=== PATIENT | female | born 1980 | race American Indian/Alaskan Native ===

== ENCOUNTER 2018-09-19 03:00 | Inpatient (IN) | payer MEDICAID ==
--- NOTE | 2018-09-19 04:57 | History and Physical Report ---
History of Present Illness Date of examination: 09/19/18 Date of admission: 09/19/18 03:00 Chief complaint: IOL for GDM History of present illness: Menstrual History Regularity: regular Menses every: 30 days Duration: 7-8 LMP: 12/18/2017 LMP reliability: definite LMP character: normal test type: urine test BC at conception: none Planned ? no EDC Calculations LMP: 09/24/2018 EDC Confirmation: 09/24/2018 Gestational Age: 21 2/7 weeks Past History : 5 Term Births: 3 Premature Births: 0 Living Children: 3 Para: 3 Mult. Births: 0 Prev : 0 Aborta: 1 Elect. Ab: 0 Spont. Ab: 1 Ectopics: 0 # 1 Delivery date: 2004 Weeks Gestation: 12 Delivery type: SAB Comments: D&C # 2 Delivery date: 07/10/2006 Weeks Gestation: 39 Delivery type: Hours of labor: 14 Anesthesia type: epidural Delivery location: [place] weight: 7-8 Name: Fermin # 3 Delivery date: 02/17/2008 Weeks Gestation: 40 Delivery type: Hours of labor: 6 Anesthesia type: epidural Delivery location: [place] Infant Sex: Male weight: 7-3 Name: Mick Comments: Elective # 4 Delivery date: 07/23/2011 Weeks Gestation: 39 Delivery type: Hours of labor: 6 Anesthesia type: none Delivery location: [place] Sex: Female weight: 8-0 Name: Machelle Past Medical History: Fibroids Past Surgical History: Breast Reduction: (2004) Neck surgery oas infant Social History: Marital Status: Children: 3 Occupation: [employer] engineer Past History Past Medical History: other (see hpi) Past Surgical History: other (see hpi) CREDIT PROFESSIONAL History: other (see hpi) Family/Genetic History: other (see hpi) Social history: other (see hpi) Medications and Allergies Allergies Allergy/AdvReac Type Severity Reaction Status Date / Time No Known Allergies Allergy Verified 09/19/18 05:26 - Vital Signs Vital signs: Vital Signs Pulse BP 106 H 134/75 09/19/18 03:50 09/19/18 03:50 Temp Pulse Resp BP Pulse Ox 106 H 134/75 09/19/18 03:50 09/19/18 03:50 Results All other labs normal. Assessment and Plan 38 y.o. IUP at 39w2d presents for IOL for GDM. Per admitting RNSHANNA / 2. GBS negative. Patient denies contractions at current. Pitocin ordered per induction protocol. Patient is non compliant with ordered insulin regimen at home. Will obtain glucose monitoring and assess need for treatment throughout labor. - Patient Problems (1) 39 weeks gestation of Current Visit: Yes Status: Acute (2) GDM (gestational diabetes mellitus) Current Visit: Yes Status: Acute (3) AMA (advanced maternal age) multigravida 35+ Current Visit: Yes Status: Acute (4) Obese Current Visit: Yes Status: Acute
[2018-09-19] MEDS ORDERED: MINERAL OIL PO PRN (05:15)
[2018-09-19] MEDS ORDERED: BRETHINE SUB-Q PRN (05:15)
[2018-09-19] MEDS ORDERED: XYLOCAINE 2% INFILTRATI ONE (05:15)
[2018-09-19] MEDS ORDERED: BRETHINE IVP PRN (05:15)
[2018-09-19] MEDS ORDERED: ZOFRAN IV PRN (05:15)
[2018-09-19] MEDS ORDERED: SUBLIMAZE IV PRN (05:15)
[2018-09-19] MEDS ORDERED: NARCAN 0.4 MG/1 ML IV PRN (05:15)
[2018-09-19] MEDS ORDERED: PITOCin/NS 30 UNIT/500ML 30 UNITS/500 ML BAG IV SCH ×2 (06:00→07:00)
[2018-09-19] MEDS ORDERED: LACTATED RINGERS 1,000 ML IV SCH (06:00)
[2018-09-19] MEDS ORDERED: PITOCin/NS 20 UNIT/1000ML DRIP 20 UNITS/1,000 ML BAG IV SCH (06:00)
[2018-09-19 06:04] LABS: Hemoglobin 12.3 gm/dl (10.1-14.3); Mean Corpuscular HGB Conc 34 % (30-34); Mean Corpuscular Volume 94 fl (79-97); Platelet Count 147 K/mm3 (140-440); Red Blood Count 3.84 M/mm3 (3.65-5.03); Red Cell Distribution Width 15.7 % (13.2-15.2)
--- NOTE | 2018-09-19 06:17 | Progress Note ---
Assessment and Plan pt appears to be tolerating irregular ctx well. SVE 4,7-,-2 ROM clear fluid ISE/IUPC placed Pit started Will re-eval as needed. Subjective - Subjective Date of service: 09/19/18 (pt c/o low back pain) Principal diagnosis: IUP @ 39w2d GDM noncompliant; BMI>40 for IOL Patient reports: movement normal Objective - Vital Signs Vital Signs: Vital Signs - 12hr 09/19/18 09/19/18 09/19/18 03:50 05:05 05:06 Temperature 100.5 F H Pulse Rate 106 H 103 H 103 H Respiratory 18 Rate Blood Pressure 134/75 143/74 Blood Pressure 143/74 [Left] - Exam Breasts: deferred Cardiovascular: Regular rate Lungs: Normal air movement Abdomen: Present: normal appearance, soft, normal bowel sounds. Absent: distention, tenderness Vulva: both: normal Uterus: Present: normal FHR: auscultation normal, category 1 Uterine Contraction Monitor Mode: Internal Cervical Dilatation: 4 (clear fluid; copious amt) Cervical Effacement Percentage: 70 (ISE/IUPC placed) station: -2 Uterine Contraction Pattern: Regular Uterine Tone Measurement Phase: Resting Uterine Contraction Intensity: Mild Extremities: edema Deep Tendon Reflex Grade: Normal +2 - Labs Labs: Abnormal Labs 09/19/18 04:51 RDW 15.7 H Laboratory Results - last 24 hr 09/19/18 04:51 WBC 7.7 RBC 3.84 Hgb 12.3 Hct 36.0 MCV 94 MCH 32 MCHC 34 RDW 15.7 H Plt Count 147
[2018-09-19 10:30] LABS: Amphetamine Screen,Urine PRESUMPTIVE NEGATIVE; Benzodiazepines Screen,Urine PRESUMPTIVE NEGATIVE; Cannabinoid Screen,Urine PRESUMPTIVE NEGATIVE; Cocaine Screen,Urine PRESUMPTIVE NEGATIVE; Methadone Screen,Urine PRESUMPTIVE NEGATIVE; Opiate Screen,Urine PRESUMPTIVE NEGATIVE
[2018-09-19] MEDS ORDERED: IBUPROFEN PO PRN (11:28)
[2018-09-19] MEDS ORDERED: LANSINOH TP PRN (11:29)
[2018-09-19] MEDS ORDERED: TYLENOL PO PRN (11:29)
[2018-09-19] MEDS ORDERED: TUCKS PAD TP PRN (11:29)
[2018-09-19] MEDS ORDERED: BENADRYL PO PRN (11:29)
[2018-09-19] MEDS ORDERED: DULCOLAX PR PRN (11:29)
[2018-09-19] MEDS ORDERED: PHENERGAN PR PRN (11:29)
[2018-09-19] MEDS ORDERED: PHENERGAN PO PRN (11:29)
[2018-09-19] MEDS ORDERED: SODIUM CHLORIDE FLUSH SYRINGE 10 ML IV NR (12:00)
--- NOTE | 2018-09-19 14:10 | Procedure Note ---
OB Delivery Note - Delivery Date of Delivery: 09/19/18 Typewriter Assembler: LANDON STILL Estimated blood loss: 300cc - Vaginal Delivery presentation: vertex Delivery position: OA Intrapartum events: other(please specify) (GDM Pt noncompliant) Delivery induction: oxytocin Delivery augmentation: rupture of membranes Delivery monitor: internal FHT, internal uterine Route of delivery: Delivery placenta: spontaneous Delivery cord: 3 umbilical vessels Delivery laceration: none Anesthesia: intravenous Delivery comments: Pt complete @ -1 station Stated she had urge to push. After approx 1 hour of pushing and multiple position changes. live born male over intact perineum Baby to mom's abdomen skin to skin. Cord blood obtained Placenta and membrane delivered complete and intact, 3 vessel cord Pitocin IVFs.Placenta to pathology. 8/9, EBL 300, Wgt 10-00 mom and baby remain LDR stable. - Infant A at 1 minute: 8 at 5 minutes: 9 Gender: Male (wgt 10 POUNDS)
[2018-09-19] MEDS: NORCO 5/325 PO PRN (18:37)
[2018-09-19] MEDS ORDERED: IBUPROFEN PO SCH (20:00)
[2018-09-19] MEDS ORDERED: MILK OF MAGNESIA PO PRN (22:00)
[2018-09-19 23:16] LABS: Hematocrit 37.9 % (30.3-42.9); Hemoglobin 12.6 gm/dl (10.1-14.3)
[2018-09-20] MEDS: NORCO 5/325 PO PRN (02:13)
[2018-09-20] MEDS: IBUPROFEN PO SCH ×3 (02:14→17:56)
[2018-09-20] MEDS ORDERED: BOOSTRIX IM ONE (06:00)
--- NOTE | 2018-09-20 08:05 | Progress Note ---
Assessment and Plan patient doing well, no complaints. lochia scant, fundus firm. VSSAF. H&H stable 12.6/37.9. having trouble with blood sugar so will continue pathway and plan for d/c home tomorrow. - Patient Problems (1) Spontaneous vaginal delivery Current Visit: Yes Status: Acute Subjective - Subjective Date of service: 09/20/18 Principal diagnosis: day #1 s/p Patient reports: appetite normal, voiding normally, pain well controlled, ambulating normally, no dizzy ambulation, no nauseated : doing well, bottle feeding Objective - Vital Signs Latest vital signs: Vital Signs Temp Pulse Resp BP BP Pulse Ox 09/20/18 01:14 97.9 F 89 19 104/42 98 09/19/18 21:55 97.2 F L 89 19 136/77 95 09/19/18 18:37 20 09/19/18 16:39 97.3 F L 70 24 135/71 96 09/19/18 13:14 20 09/19/18 13:00 98.9 F 94 H 18 145/64 96 09/19/18 12:21 92 H 103/52 09/19/18 12:14 20 09/19/18 12:13 97 H 155/76 09/19/18 11:58 96 H 152/77 09/19/18 11:43 96 H 142/73 09/19/18 11:28 99 H 144/71 09/19/18 11:13 94 H 140/70 09/19/18 10:58 101 H 136/67 09/19/18 10:43 108 H 137/56 09/19/18 10:40 98.1 F 20 09/19/18 10:21 98.1 F 28 H 09/19/18 10:20 130 H 132/78 09/19/18 10:19 130 H 96 09/19/18 09:18 100 H 140/70 09/19/18 08:38 20 09/19/18 08:29 104 H 132/87 - Exam Breasts: Present: normal Cardiovascular: Present: Regular rate Lungs: Present: Clear to auscultation, Normal air movement Abdomen: Present: normal appearance, soft Vulva: both: normal Uterus: Present: normal, firm, fundal height at umbilicus Extremities: Present: normal Deep Tendon Reflex Grade: Normal +2
[2018-09-20] MEDS ORDERED: M-M-R II VACCINE SUB-Q ONE (10:00)
[2018-09-21] MEDS: NORCO 5/325 PO PRN (00:07)
[2018-09-21] MEDS: IBUPROFEN PO SCH (02:30)
--- NOTE | 2018-09-21 08:31 | Discharge Summary ---
Providers - Providers Date of Admission: 09/19/18 03:00 Date of discharge: 09/21/18 (Patient desires discharge today) Attending physician: PIETRO SANCHEZ Primary care physician: PIETRO SANCHEZ Hospitalization Reason for admission: IOL for GDM Condition: Good Pertinent studies: Post delivery H&H 12.6/37.9 Procedures: Hospital course: Uncomplicated and course Disposition: DC-01 TO HOME OR SELFCARE - Discharge Diagnoses (1) 39 weeks gestation of Status: Acute (2) GDM (gestational diabetes mellitus) Status: Acute (3) AMA (advanced maternal age) multigravida 35+ Status: Acute (4) Obese Status: Acute Core Measure Documentation - Palliative Care Palliative Care/ Comfort Measures: Not Applicable - Core Measures Any of the following diagnoses?: none Exam - Constitutional Vitals: Temp Pulse Resp BP Pulse Ox 97.5 F L 73 18 114/62 100 09/21/18 00:37 09/21/18 00:37 09/21/18 02:30 09/21/18 00:37 09/21/18 00:37 General appearance: Present: no acute distress, well-nourished - EENT Eyes: Present: PERRL ENT: hearing intact, clear oral mucosa - Neck Neck: Present: supple, normal ROM - Respiratory Respiratory effort: normal Respiratory: bilateral: CTA - Cardiovascular Heart Sounds: Present: S1 & S2. Absent: rub, click - Extremities Extremities: pulses symmetrical, No edema Peripheral Pulses: within normal limits - Abdominal General gastrointestinal: Present: soft, non-tender, non-distended, normal bowel sounds Female genitourinary: Present: normal - Integumentary Integumentary: Present: clear, warm, dry - Musculoskeletal Musculoskeletal: gait normal, strength equal bilaterally - Psychiatric Psychiatric: appropriate mood/affect, intact judgment & insight - Neurologic Neurologic: CNII-XII intact, moves all extremities - Additional findings Additional findings: Fundus firm, ML, U/1. Bleeding is scant. Pain is well controlled with pain IBU. Patient is , supplementing with formula as needed, reports breasts feeling well. VSSAF. Plan Activity: no restrictions Diet: regular Follow up with: PIETRO SANCHEZ MD [Primary Care Provider] - 7 Days (Congratulations! Please call [phone] to schedule your son's circumcision in 1 week. Bring EMLA cream with you to his appointment and await further instructions for use. Please schedule your appointment for 6 weeks. Call with any questions or concerns. ) Prescriptions: Ibuprofen [Motrin 800 MG tab] 800 mg PO Q8HR PRN #30 tablet PRN Reason: Pain Lidocain2.5%/Prilocai2.5% [Emla] 5 gm TP ONCE PRN #1 tube PRN Reason: Pain
[2018-09-21 16:16] VITALS: BP 144/81
== END 2018-09-21 19:41 | disposition home or self-care (01) | DRG 775 ==
LOC: LD 03:00 → EEVIPCON 03:00 → LD 03:09 → OB 12:51
PROVIDERS: ADMIT Obstetrics & Gynecology; ATTEND Obstetrics & Gynecology
PROC: 10E0XZZ Delivery of Products of Conception, External Approach (ICD-10-PCS; principal; 2018-09-19)
PROC: 10H07YZ Insertion of Other Device into Products of Conception, Via Natural or Artificial Opening (ICD-10-PCS; 2018-09-19)
PROC: 3E033VJ Introduction of Other Hormone into Peripheral Vein, Percutaneous Approach (ICD-10-PCS; 2018-09-19)
PROC: 3E0234Z Introduction of Serum, Toxoid and Vaccine into Muscle, Percutaneous Approach (ICD-10-PCS; 2018-09-20)
DX: O24.429 Gestational diabetes mellitus in childbirth, unspecified control (principal); O99.214 Obesity complicating childbirth; E66.9 Obesity, unspecified; Z23 Encounter for immunization; Z3A.39 39 weeks gestation of pregnancy; Z37.0 Single live birth
CPT/HCPCS: 36415; 80307; 82962; 83036; 85014; 85018; 85027; 86592; 86850; 86900; 86901; 88307; G0378; A6250; J2590; J3010; J7120